=== PATIENT | male | born 1970 | race Caucasian/White ===

== ENCOUNTER 2022-03-31 06:52 | Emergency (ER) | payer OTHER ==
[~2022-03-31] VITALS: Ht 175.3 cm; Wt 90.7 kg
[~2022-03-31 06:52] MED LIST: AMOX500 PO; Neurontin 300300 MG PO
[2022-03-31] MEDS ORDERED: GABA100 PO (09:41)
== END 2022-03-31 09:49 | disposition home or self-care (01) ==
LOC: ER 06:52
DX: M79.605 Pain in left leg (principal); G89.29 Other chronic pain; F17.200 Nicotine dependence, unspecified, uncomplicated
CPT/HCPCS: 99283

== ENCOUNTER 2022-12-21 10:25 | Day surgery (SDC) | payer OTHER ==
[~2022-12-21] VITALS: Ht 185.4 cm; Wt 116.0 kg
[~2022-12-21 10:25] MED LIST changes: +GABA100 PO; +IBUP600 PO; +KETOROLAC; +MELATONIN5 M1 PO; +TRAM50 PO
[2022-12-21 10:42] VITALS: BP 179/110
[2022-12-21 10:45] VITALS: BP 168/112
[2022-12-21 12:34] VITALS: BP 140/103
[2022-12-21 12:45] VITALS: BP 130/114
[2022-12-21 13:00] VITALS: BP 134/104
--- NOTE | 2022-12-21 13:22 | NUR ---
PT AMBULATES TO RESTROOM AND BACK WITHOUT DIFF. R IJ SITE REMAINS CLEAR. NO BLEEDING OR HEMATOMA NOTED. VSS. NADN. PT VERBALIZES UNDERSTANDING WRITTEN INSTRUCTIONS. PT IV DC'D. CATH INTACT. PRESSURE DSG APPLIED. PT DC TO HOME VIA W/C
== END 2022-12-21 13:25 | disposition home or self-care (01) ==
LOC: MHTC 10:25
DX: I82.402 Acute embolism and thrombosis of unspecified deep veins of left lower extremity (principal); I10 Essential (primary) hypertension; G89.29 Other chronic pain; F17.210 Nicotine dependence, cigarettes, uncomplicated; I73.9 Peripheral vascular disease, unspecified; Z95.828 Presence of other vascular implants and grafts
CPT/HCPCS: 37193; 76937; 99152; 99153; C1769; C1773; C1894; J1644; J2250; J3010; J7030; Q9967

== ENCOUNTER 2023-06-06 15:35 | Emergency (ER) | payer OTHER ==
[~2023-06-06] VITALS: Ht 182.9 cm; Wt 133.4 kg
[2023-06-06] MEDS ORDERED: IBUP600 PO (16:17)
[2023-06-06] MEDS ORDERED: MELA3 (16:17)
[2023-06-06] MEDS ORDERED: BENZ100A PO (16:28)
[2023-06-06] MEDS ORDERED: ALBU90OI INH (16:28)
[2023-06-06] MEDS ORDERED: HYDROCODONE-AC1 EA10 PO (16:28)
[2023-06-06 17:00] VITALS: BP 142/65
== END 2023-06-06 17:01 | disposition home or self-care (01) ==
LOC: ER 15:35
DX: J21.9 Acute bronchiolitis, unspecified (principal); F17.200 Nicotine dependence, unspecified, uncomplicated
CPT/HCPCS: 71046; 99283-25

== ENCOUNTER 2023-06-10 09:09 | Emergency (ER) | payer OTHER ==
[~2023-06-10] VITALS: Ht 182.9 cm; Wt 132.9 kg
[~2023-06-10 09:09] MED LIST changes: +ALBU90OI INH; +BENZ100A PO; +HYDROCODONE-AC1 EA10 PO; +MELA3
[2023-06-10 09:57] VITALS: BP 144/101
[2023-06-10] MEDS ORDERED: Ibuprofen 400 MG Tab PO ONE (11:45)
[2023-06-10] MEDS ORDERED: HYDROcodone 7.5-APAP 325 TAB PO ONE (11:45)
[2023-06-10] MEDS ORDERED: Norco 7.5-3251 EACH PO (11:50)
[2023-06-10] MEDS ORDERED: IBUP800 PO (11:50)
== END 2023-06-10 12:04 | disposition home or self-care (01) ==
LOC: ER 09:09
DX: R07.89 Other chest pain (principal); Z79.899 Other long term (current) drug therapy; F17.200 Nicotine dependence, unspecified, uncomplicated
CPT/HCPCS: 71101; 99283-25; A9270

== ENCOUNTER 2023-06-13 05:31 | Emergency (ER) | payer OTHER ==
[~2023-06-13] VITALS: Ht 182.9 cm; Wt 133.4 kg
[~2023-06-13 05:31] MED LIST changes: +IBUP800 PO; +Norco 7.5-3251 EACH PO
[2023-06-13] MEDS ORDERED: Ketorolac Tromethamine 15mg Vial IV ONE (06:00)
[2023-06-13] MEDS ORDERED: Acetaminophen 500 MG Tab PO ONE (06:00)
[2023-06-13] MEDS ORDERED: Lactated Ringer's 1,000 ML IV ONE (06:00)
[2023-06-13] MEDS ORDERED: Methocarbamol 500 MG Tab PO ONE (06:00)
[2023-06-13 06:16] LABS: BASOPHILS ABSOLUTE AUTO 0.08 K/mm3 (0.00-0.23); BASOPHILS PERCENT AUTO 1 % (0-2); EOSINOPHILS ABSOLUTE AUTO 0.43 K/mm3 (0.00-0.68); EOSINOPHILS PERCENT AUTO 3 % (0-6); Hematocrit 40.4 % (37.0-53.0); Hemoglobin 12.7 g/dL (13.5-17.5); IMMATURE GRAN ABSOLUTE AUTO 0.21 K/mm3 (0.00-0.10); IMMATURE GRAN PERCENT AUTO 2 % (0-1); LYMPHOCYTES ABSOLUTE AUTO 1.52 K/mm3 (0.84-5.20); LYMPHOCYTES PERCENT AUTO 12 % (21-46); MONOCYTES ABSOLUTE AUTO 1.22 K/mm3 (0.16-1.47); MONOCYTES PERCENT AUTO 9 % (4-13); Mean Corpuscular HGB 20.3 pg (26.0-34.0); Mean Corpuscular HGB Conc 31.4 g/dL (31.5-36.5); Mean Corpuscular Volume 64 fL (80-100); Mean Platelet Volume 10.8 fL (9.1-12.4); NEUTROPHILS ABSOLUTE AUTO 9.56 K/mm3 (1.96-9.15); NEUTROPHILS PERCENT AUTO 73 % (41-73); NRBC ABSOLUTE 0.03 K/mm3 (0.00-0.02); NRBC Auto 0.2 /100 WBC (0.0-0.2); Platelet Count 302 K/mm3 (150-400); RDW Coefficient Variation 15.9 % (11.7-14.2); RDW Standard Deviation 34.2 fL (35.1-46.3); Red Blood Cell Count 6.27 M/mm3 (4.30-5.90); White Blood Cell Count 13.02 K/mm3 (4.00-11.30)
[2023-06-13] MEDS ORDERED: HYDROmorphone HCl/Pf 1MG SYR IV ONE ×4 (06:20→10:05)
[2023-06-13 06:38] LABS: Albumin, Blood 3.3 g/dL (3.4-5.0); Albumin/Globulin Ratio 0.8 (0.8-1.8); Bilirubin, Direct 0.3 mg/dL (0.0-0.3); Bilirubin, Indirect 0.7 mg/dL (0.1-0.7); Bun/Creatinine Ratio 29.5 (12.0-20.0); Calcium, Blood 8.4 mg/dL (8.5-10.1); Creatinine, Blood 0.75 mg/dL (0.60-1.20); Globulin, Blood 4.1 g/dL (2.2-4.0); Potassium, Blood 3.9 mmol/L (3.5-5.5); Total Protein, Blood 7.4 g/dL (6.4-8.2)
[2023-06-13] MEDS ORDERED: HYDROmorphone HCl/Pf 1MG SYR IM ONE (07:15)
[2023-06-13 07:50] LABS: International Normalized Ratio 1.06; Prothrombin Time Results 11.1 Sec (9.7-11.5)
[2023-06-13 08:29] LABS: Source, Urine Clean Catch
[2023-06-13 08:33] LABS: Appearance, Urine Clear (Clear); Bilirubin, Urine Neg (Neg); Blood, Urine Neg (Neg); Color, Urine Yellow (P-Yellow); Glucose Qualitative, Urine Neg (Neg); Ketones, Urine Neg (Neg); Leukocyte Esterase, Urine Neg (Neg); Nitrite, Urine Neg (Neg); Protein, Urine 2+ (Neg); Specific Gravity, Urine 1.005 (1.003-1.022); Urobilinogen, Urine NORM (Normal); pH, Urine 6.5 (5.0-8.0)
[2023-06-13 08:43] LABS: Bacteria Not Seen /hpf; Red Blood Cells, Urine Not Seen /hpf (0-2); Squamous Epithelial Cells Rare /hpf (Few)
[2023-06-13 09:55] VITALS: BP 156/91
== END 2023-06-13 10:28 | disposition short-term general hospital (02) ==
LOC: ER 05:31
PROVIDERS: Emergency Medicine
DX: J98.4 Other disorders of lung (principal); R58 Hemorrhage, not elsewhere classified; F17.200 Nicotine dependence, unspecified, uncomplicated
CPT/HCPCS: 74177; 80048; 80076; 81001; 83690; 85025; 85610; 86850; 86900; 86901; 93005; 93010; 96361; 96372-59; 96374-59; 96375; 96376; 99285-25; A9270; J1170; J1885; J7120; Q9967

== ENCOUNTER 2023-07-31 12:36 | Emergency (ER) | payer OTHER ==
[~2023-07-31] VITALS: Ht 185.4 cm; Wt 119.8 kg
[2023-07-31 12:43] VITALS: BP 165/112
[2023-07-31] MEDS ORDERED: Ketorolac Tromethamine 30mg Vial IV ONE (13:05)
[2023-07-31 14:09] LABS: BASOPHILS ABSOLUTE AUTO 0.11 K/mm3 (0.00-0.23); BASOPHILS PERCENT AUTO 1 % (0-2); EOSINOPHILS ABSOLUTE AUTO 0.25 K/mm3 (0.00-0.68); EOSINOPHILS PERCENT AUTO 2 % (0-6); Hematocrit 40.9 % (37.0-53.0); Hemoglobin 12.8 g/dL (13.5-17.5); IMMATURE GRAN ABSOLUTE AUTO 0.11 K/mm3 (0.00-0.10); IMMATURE GRAN PERCENT AUTO 1 % (0-1); LYMPHOCYTES PERCENT AUTO 16 % (21-46); MONOCYTES ABSOLUTE AUTO 0.81 K/mm3 (0.16-1.47); MONOCYTES PERCENT AUTO 7 % (4-13); Mean Corpuscular HGB 20.3 pg (26.0-34.0); Mean Corpuscular HGB Conc 31.3 g/dL (31.5-36.5); Mean Corpuscular Volume 65 fL (80-100); Mean Platelet Volume 10.5 fL (9.1-12.4); NEUTROPHILS PERCENT AUTO 73 % (41-73); Platelet Count 454 K/mm3 (150-400); RDW Coefficient Variation 18.9 % (11.7-14.2); RDW Standard Deviation 38.9 fL (35.1-46.3); White Blood Cell Count 11.38 K/mm3 (4.00-11.30)
[2023-07-31] MEDS ORDERED: HYDROcodone 7.5-APAP 325 TAB PO ONE (14:30)
[2023-07-31] MEDS ORDERED: IBU800 MG PO (14:32)
[2023-07-31] MEDS ORDERED: LIDO700A20 TOP (14:32)
[2023-07-31 14:35] LABS: Bun/Creatinine Ratio 30.4 (12.0-20.0); Calcium, Blood 8.6 mg/dL (8.5-10.1); Creatinine, Blood 0.49 mg/dL (0.60-1.20); Potassium, Blood 4.5 mmol/L (3.5-5.5)
[2023-07-31] MEDS ORDERED: HYDR1TAB94 PO (14:39)
== END 2023-07-31 15:00 | disposition home or self-care (01) ==
LOC: ER 12:36
PROVIDERS: Emergency Medicine
DX: R07.81 Pleurodynia (principal); J98.4 Other disorders of lung; Z79.899 Other long term (current) drug therapy; F17.210 Nicotine dependence, cigarettes, uncomplicated
CPT/HCPCS: 71260; 80048; 85025; 96374-59; 99284-25; A9270; J1885; Q9967